=== PATIENT | female | born 1930 | race Caucasian/White ===

== ENCOUNTER 2017-05-09 23:17 | Emergency (ER) | payer MEDICARE, OTHER ==
[~2017-05-09] VITALS: Ht 154.9 cm; Wt 59.1 kg
[~2017-05-09 23:17] MED LIST: ACET-784 PO; ASPI81 PO; AUD NEB; BISA10S PR; BISA5TAB12 PO; CLOP75TA32 PO; DSS100 PO; HEPA500018 SQ; INSLAN SQ; INSNOV SQ; IPRNEB IH; LORA0.5T2 PO; MEMA1CAP4 PO; MIRT15 PO; MOM30 PO; MULT-68 PO; MULT1CAP42 PO; ONDA4 PO; PANT40TA25 PO; PARO10TA71 PO; RISP.5 PO; VALS160T2 PO; ZOLP5 PO
[2017-05-09 23:32] LABS: GLUCOSE,POINT OF CARE 143 MG/DL (70-110)
[2017-05-10 00:33] LABS: BASOPHILS % (AUTO) 0.3 % (0.0-2.0); EOSINOPHILS % (AUTO) 3.3 % (1.0-6.0); HEMATOCRIT 47.2 % (36-46); HEMOGLOBIN 16.1 g/dL (12.0-16.0); LYMPHOCYTES # (AUTO) 1.3 K/uL (1.0-4.8); LYMPHOCYTES % (AUTO) 24.8 % (22.0-44.0); MEAN CORPUSCULAR HEMOGLOBIN 30.8 pg (26.0-34.0); MEAN CORPUSCULAR HGB CONC 34.2 G/dL (31.0-37.0); MEAN CORPUSCULAR VOLUME 90 fL (80-100); MONOCYTES # (AUTO) 0.5 K/uL (0.1-1.0); MONOCYTES % (AUTO) 9.8 % (2.0-9.0); NEUTROPHILS # (AUTO) 3.3 K/uL (1.8-7.7); NEUTROPHILS % (AUTO) 61.8 % (40.0-70.0); PLATELET COUNT (AUTO) 145 K/uL (150-450); RED BLOOD CELL COUNT(AUTO) 5.23 MIL/uL (4.00-5.20); RED CELL DISTRIBUTION WIDTH 13.9 % (11.5-14.5)
[2017-05-10 00:46] LABS: ANION GAP 9 mmol/L (8-16); CALCIUM, TOTAL 10.1 mg/dL (8.8-10.5); CARBON DIOXIDE 28 mmol/L (22-29); CHLORIDE 102 mmol/L (98-107); CREATININE 1.11 mg/dL (0.60-1.30); GLOMERULAR FILTR. RATE CALC 46 mL/min (>60); GLUCOSE,RANDOM 226 mg/dL (70-110); POTASSIUM 4.1 mmol/L (3.5-5.1); SODIUM SERUM 139 mmol/L (136-145); UREA NITROGEN, BLOOD 27 mg/dL (7-18)
[2017-05-10 01:09] LABS: ALANINE AMINOTRANSFERASE 23 U/L (12-78); ALBUMIN 3.6 g/dL (3.4-5.0); ALKALINE PHOSPHATASE 84 U/L (46-116); ASPARTATE AMINOTRANSFERASE 32 U/L (15-37); BILIRUBIN,TOTAL 0.7 mg/dL (0.1-1.0); CREATINE KINASE MB 4.3 ng/mL (0-5); CREATINE KINASE, TOTAL 511 U/L (26-192); TOTAL PROTEIN, SERUM 7.5 g/dL (6.4-8.2)
[2017-05-10 02:29] VITALS: BP 127/78
== END 2017-05-10 02:32 | disposition home or self-care (01) ==
LOC: EMS 23:19
DX: S70.02XA Contusion of left hip, initial encounter (principal); L25.9 Unspecified contact dermatitis, unspecified cause; E11.9 Type 2 diabetes mellitus without complications; I10 Essential (primary) hypertension; E03.9 Hypothyroidism, unspecified; F03.90 Unspecified dementia, unspecified severity, without behavioral disturbance, psychotic disturbance, mood disturbance, and anxiety; Z85.3 Personal history of malignant neoplasm of breast; Z79.82 Long term (current) use of aspirin; Z79.4 Long term (current) use of insulin; Z79.899 Other long term (current) drug therapy; Z98.890 Other specified postprocedural states; W18.39XA Other fall on same level, initial encounter; Y93.89 Activity, other specified; Y92.89 Other specified places as the place of occurrence of the external cause; Y99.8 Other external cause status
CPT/HCPCS: 73521; 82962; 93005; 99285

== ENCOUNTER 2018-10-17 21:08 | Inpatient (IN) | payer MEDICARE, OTHER ==
[~2018-10-17] VITALS: Ht 149.9 cm; Wt 40.3 kg
[~2018-10-17 21:08] MED LIST changes: +BISA-151 PO; -BISA10S PR; +BISA10SU11 PR; -BISA5TAB12 PO
[2018-10-17] MEDS ORDERED: GLIP5 PO (21:42)
[2018-10-17] MEDS ORDERED: AMOX1TAB15 PO (21:42)
[2018-10-17] MEDS ORDERED: SODIUM CHLORIDE 0.9% 500 ML IV ONE (22:00)
[2018-10-17 22:39] LABS: BASOPHILS % (AUTO) 0.2 % (0.0-2.0); EOSINOPHILS % (AUTO) 2.4 % (1.0-6.0); HEMATOCRIT 44.3 % (36-46); HEMOGLOBIN 14.1 g/dL (12.0-16.0); LYMPHOCYTES # (AUTO) 1.5 K/uL (1.0-4.8); LYMPHOCYTES % (AUTO) 26.9 % (22.0-44.0); MEAN CORPUSCULAR HEMOGLOBIN 28.9 pg (26.0-34.0); MEAN CORPUSCULAR HGB CONC 31.9 G/dL (31.0-37.0); MEAN CORPUSCULAR VOLUME 91 fL (80-100); MONOCYTES # (AUTO) 0.4 K/uL (0.1-1.0); MONOCYTES % (AUTO) 7.3 % (2.0-9.0); NEUTROPHILS # (AUTO) 3.4 K/uL (1.8-7.7); NEUTROPHILS % (AUTO) 63.2 % (40.0-70.0); PLATELET COUNT (AUTO) 165 K/uL (150-450); RED CELL DISTRIBUTION WIDTH 14.9 % (11.5-14.5)
[2018-10-17 22:40] LABS: CALCIUM, TOTAL 10.5 mg/dL (8.8-10.5); CREATININE 0.93 mg/dL (0.60-1.30)
[2018-10-17 22:47] LABS: ALBUMIN 3.2 g/dL (3.4-5.0); BILIRUBIN,TOTAL 0.7 mg/dL (0.1-1.0); TOTAL PROTEIN, SERUM 7.2 g/dL (6.4-8.2)
[2018-10-17 22:49] LABS: LACTIC ACID 1.5 mmol/L (0.4-2.0)
[2018-10-17 23:01] LABS: INFLUENZA TYPE A NEGATIVE FOR TYPE A (NEGATIVE); INFLUENZA TYPE B NEGATIVE FOR TYPE B (NEGATIVE)
[2018-10-17] MEDS ORDERED: 0.9% SODIUM CHLORIDE 10 ML SYRINGE IVP PRN ×2 (23:30→23:45)
[2018-10-17] MEDS ORDERED: ONDANSETRON HCL 4 MG/2 ML VIAL IVP PRN ×2 (23:30→23:45)
[2018-10-17] MEDS ORDERED: ASPIRIN 81 MG CHEWABLE TABLET PO ONE (23:30)
[2018-10-17] MEDS ORDERED: CefTRIAXone 1 GM/DEXTROSE 50 ML IV ONE (23:30)
[2018-10-17] MEDS ORDERED: ACETAMINOPHEN 325 MG TABLET PO PRN ×2 (23:30→23:45)
[2018-10-17] MEDS ORDERED: MAGNESIUM SULFATE 2 GM/WATER 50 ML IV PRN (23:45)
[2018-10-17] MEDS ORDERED: ZOLPIDEM TARTRATE 5 MG TABLET PO PRN (23:45)
[2018-10-17] MEDS ORDERED: ALBUTEROL SULFATE 2.5 MG/0.5 ML NEB SOLUTION NEB PRN (23:45)
[2018-10-17] MEDS ORDERED: LORazepam 0.5 MG TABLET PO PRN (23:45)
[2018-10-17] MEDS ORDERED: MAGNESIUM OXIDE 400 MG TABLET PO PRN (23:45)
[2018-10-17] MEDS ORDERED: MAGNESIUM SULFATE 4 GM/WATER 100 ML IV PRN (23:45)
[2018-10-17] MEDS ORDERED: DEXTROSE 50%-WATER 25 GM/50 ML SYRINGE IVP PRN (23:45)
[2018-10-17] MEDS ORDERED: POTASSIUM CHLORIDE 20 MEQ ER TABLET PO PRN (23:45)
[2018-10-17] MEDS ORDERED: IPRATROPIUM BROMIDE 0.5 MG/2.5 ML NEB SOLUTION NEB PRN (23:45)
[2018-10-17] MEDS ORDERED: POTASSIUM CHL 10 MEQ/WATER 50 ML IV PRN (23:45)
[2018-10-18] MEDS: HEPARIN SODIUM,PORCINE 5,000 UNITS/ML VIAL SQ SCH ×4 (00:32→23:30)
[2018-10-18] MEDS: AZITHROMYCIN 500 MG/NS 250 ML IV SCH ×2 (00:32→23:31)
[2018-10-18 01:42] VITALS: BP 121/50
[2018-10-18] MEDS: IPRATROPIUM BROMIDE 0.5 MG/2.5 ML NEB SOLUTION NEB SCH ×4 (02:00→20:00)
[2018-10-18] MEDS: ALBUTEROL SULFATE 2.5 MG/0.5 ML NEB SOLUTION NEB SCH ×4 (02:00→20:00)
[2018-10-18 04:31] VITALS: BP 116/52
[2018-10-18] MEDS: INSULIN LISPRO 100 UNITS/ML SQ PRN ×2 (06:24→21:26)
[2018-10-18 06:48] LABS: BASOPHILS % (AUTO) 0.2 % (0.0-2.0); EOSINOPHILS % (AUTO) 1.8 % (1.0-6.0); HEMATOCRIT 49.3 % (36-46); HEMOGLOBIN 16.1 g/dL (12.0-16.0); LYMPHOCYTES # (AUTO) 1.7 K/uL (1.0-4.8); MEAN CORPUSCULAR HEMOGLOBIN 29.6 pg (26.0-34.0); MEAN CORPUSCULAR HGB CONC 32.7 G/dL (31.0-37.0); MEAN CORPUSCULAR VOLUME 91 fL (80-100); MONOCYTES # (AUTO) 0.6 K/uL (0.1-1.0); MONOCYTES % (AUTO) 8.3 % (2.0-9.0); NEUTROPHILS # (AUTO) 4.3 K/uL (1.8-7.7); NEUTROPHILS % (AUTO) 64.7 % (40.0-70.0); PLATELET COUNT (AUTO) 148 K/uL (150-450); RED BLOOD CELL COUNT(AUTO) 5.44 MIL/uL (4.00-5.20); RED CELL DISTRIBUTION WIDTH 14.7 % (11.5-14.5)
[2018-10-18 06:52] LABS: ANION GAP 7 mmol/L (8-16); CALCIUM, TOTAL 10.5 mg/dL (8.8-10.5); CARBON DIOXIDE 27 mmol/L (22-29); CHLORIDE 104 mmol/L (98-107); GLUCOSE,RANDOM 189 mg/dL (70-110); POTASSIUM 4.1 mmol/L (3.5-5.1); SODIUM SERUM 138 mmol/L (136-145); UREA NITROGEN, BLOOD 15 mg/dL (7-18)
[2018-10-18 06:59] LABS: GLOMERULAR FILTR. RATE CALC > 60 mL/min (>60)
[2018-10-18 08:02] VITALS: BP 112/52
[2018-10-18] MEDS: PANTOPRAZOLE SODIUM 40 MG DR TABLET PO SCH (08:07)
[2018-10-18] MEDS ORDERED: MEMANTINE PO SCH (09:00)
[2018-10-18] MEDS ORDERED: PANTOPRAZOLE SODIUM 40 MG DR TABLET PO SCH (09:00)
[2018-10-18] MEDS ORDERED: DONEPEZIL PO SCH (09:00)
[2018-10-18 09:50] LABS: APPEARANCE,URINE CLEAR (CLEAR); BILIRUBIN,URINE NEGATIVE (NEGATIVE); GLUCOSE, URINE (UA) 100 mg/dL (NEGATIVE); KETONES,URINE NEGATIVE (NEGATIVE); LEUKOCYTE ESTERASE ,URINE SMALL (NEGATIVE); NITRATE,URINE NEGATIVE (NEGATIVE); OCCULT BLOOD,URINE NEGATIVE (NEGATIVE); PROTEIN,URINE TRACE (NEGATIVE); UROBILINOGEN,URINE 0.2 mg/dL (<=1.0)
[2018-10-18 10:20] LABS: BACTERIA,URINE None Seen /HPF (None Seen); RBC,URINE None Seen /HPF (0-2); SQUAMOUS EPITHELIAL CELL,UR Few /LPF (None Seen)
[2018-10-18 11:35] VITALS: BP 145/87
[2018-10-18 11:40] LABS: GLUCOMETER DEV NAME(LOC) 5N.2; GLUCOSE,POINT OF CARE 117 MG/DL (70-110)
[2018-10-18 11:40] LABS: GLUCOMETER DEV NAME(LOC) 5N.2; GLUCOSE,POINT OF CARE 175 MG/DL (70-110)
[2018-10-18 20:07] VITALS: BP 150/79
[2018-10-18] MEDS ORDERED: SODIUM CHLORIDE 0.9% 250 ML IV ONE (20:42)
[2018-10-18] MEDS: CefTRIAXone 1 GM/DEXTROSE 50 ML IV SCH (21:02)
[2018-10-18] MEDS: MIRTAZAPINE 15 MG TABLET PO SCH (21:02)
[2018-10-18 23:20] LABS: GLUCOMETER DEV NAME(LOC) 5N.1; GLUCOSE,POINT OF CARE 144 MG/DL (70-110)
[2018-10-18 23:20] LABS: GLUCOMETER DEV NAME(LOC) 5S.1; GLUCOSE,POINT OF CARE 266 MG/DL (70-110)
[2018-10-19 00:12] VITALS: BP 152/95
[2018-10-19] MEDS: IPRATROPIUM BROMIDE 0.5 MG/2.5 ML NEB SOLUTION NEB SCH ×4 (02:00→20:00)
[2018-10-19] MEDS: ALBUTEROL SULFATE 2.5 MG/0.5 ML NEB SOLUTION NEB SCH ×4 (02:00→20:00)
[2018-10-19] MEDS: HEPARIN SODIUM,PORCINE 5,000 UNITS/ML VIAL SQ SCH ×4 (08:00→23:08)
[2018-10-19] MEDS: PANTOPRAZOLE SODIUM 40 MG DR TABLET PO SCH (10:28)
[2018-10-19] MEDS: LISINOPRIL 20 MG TABLET PO SCH (18:21)
[2018-10-19] MEDS: INSULIN LISPRO 100 UNITS/ML SQ PRN (18:22)
[2018-10-19 20:12] VITALS: BP 110/57
[2018-10-19] MEDS: MIRTAZAPINE 15 MG TABLET PO SCH (21:00)
[2018-10-19] MEDS: CefTRIAXone 1 GM/DEXTROSE 50 ML IV SCH (21:56)
[2018-10-19] MEDS: AZITHROMYCIN 500 MG/NS 250 ML IV SCH (23:07)
[2018-10-20] MEDS: IPRATROPIUM BROMIDE 0.5 MG/2.5 ML NEB SOLUTION NEB SCH ×3 (02:00→20:00)
[2018-10-20] MEDS: ALBUTEROL SULFATE 2.5 MG/0.5 ML NEB SOLUTION NEB SCH ×3 (02:00→20:00)
[2018-10-20 05:38] VITALS: BP 150/63
[2018-10-20] MEDS: HEPARIN SODIUM,PORCINE 5,000 UNITS/ML VIAL SQ SCH ×2 (08:00→16:00)
[2018-10-20 08:21] LABS: GLUCOMETER DEV NAME(LOC) 5N.1; GLUCOSE,POINT OF CARE 179 MG/DL (70-110)
[2018-10-20 08:21] LABS: GLUCOMETER DEV NAME(LOC) 5N.1; GLUCOSE,POINT OF CARE 160 MG/DL (70-110)
[2018-10-20 09:15] VITALS: BP 171/71
[2018-10-20] MEDS: LISINOPRIL 20 MG TABLET PO SCH (09:19)
[2018-10-20] MEDS: PANTOPRAZOLE SODIUM 40 MG DR TABLET PO SCH (09:19)
[2018-10-20 16:05] VITALS: BP 128/90
[2018-10-20] MEDS: MIRTAZAPINE 15 MG TABLET PO SCH (20:55)
[2018-10-20] MEDS: CefTRIAXone 1 GM/DEXTROSE 50 ML IV SCH (22:00)
[2018-10-21] MEDS: AZITHROMYCIN 500 MG/NS 250 ML IV SCH
[2018-10-21 00:45] LABS: GLUCOMETER DEV NAME(LOC) 5N.1; GLUCOSE,POINT OF CARE 235 MG/DL (70-110)
[2018-10-21] MEDS: ALBUTEROL SULFATE 2.5 MG/0.5 ML NEB SOLUTION NEB SCH ×3 (02:00→20:00)
[2018-10-21] MEDS: IPRATROPIUM BROMIDE 0.5 MG/2.5 ML NEB SOLUTION NEB SCH ×3 (02:00→20:00)
[2018-10-21 05:56] LABS: GLUCOMETER DEV NAME(LOC) 5N.2; GLUCOSE,POINT OF CARE 156 MG/DL (70-110)
[2018-10-21 05:56] LABS: GLUCOMETER DEV NAME(LOC) 5N.2; GLUCOSE,POINT OF CARE 194 MG/DL (70-110)
[2018-10-21] MEDS: HEPARIN SODIUM,PORCINE 5,000 UNITS/ML VIAL SQ SCH ×3 (08:00→16:00)
[2018-10-21] MEDS: LISINOPRIL 20 MG TABLET PO SCH (09:00)
[2018-10-21] MEDS: PANTOPRAZOLE SODIUM 40 MG DR TABLET PO SCH (09:00)
[2018-10-21 15:11] VITALS: BP 150/79
[2018-10-21 19:15] VITALS: BP 159/84
[2018-10-21 20:30] LABS: GLUCOMETER DEV NAME(LOC) 5S.2A; GLUCOSE,POINT OF CARE 127 MG/DL (70-110)
[2018-10-21] MEDS: MIRTAZAPINE 15 MG TABLET PO SCH (21:00)
[2018-10-21] MEDS: CefTRIAXone 1 GM/DEXTROSE 50 ML IV SCH (22:00)
[2018-10-21 23:20] VITALS: BP 153/71
[2018-10-22] MEDS: AZITHROMYCIN 500 MG/NS 250 ML IV SCH
[2018-10-22] MEDS: IPRATROPIUM BROMIDE 0.5 MG/2.5 ML NEB SOLUTION NEB SCH ×4 (02:00→20:00)
[2018-10-22] MEDS: ALBUTEROL SULFATE 2.5 MG/0.5 ML NEB SOLUTION NEB SCH ×4 (02:00→20:00)
[2018-10-22 04:25] VITALS: BP 176/77
[2018-10-22] MEDS: HEPARIN SODIUM,PORCINE 5,000 UNITS/ML VIAL SQ SCH ×3 (08:00→16:00)
[2018-10-22 08:12] VITALS: BP 149/67
[2018-10-22] MEDS: LISINOPRIL 20 MG TABLET PO SCH (08:43)
[2018-10-22] MEDS: PANTOPRAZOLE SODIUM 40 MG DR TABLET PO SCH (08:43)
[2018-10-22] MEDS: INSULIN LISPRO 100 UNITS/ML SQ PRN ×2 (12:49→21:00)
[2018-10-22 15:58] VITALS: BP 148/71
[2018-10-22 17:06] LABS: GLUCOMETER DEV NAME(LOC) 5N.1; GLUCOSE,POINT OF CARE 262 MG/DL (70-110)
[2018-10-22 19:54] VITALS: BP 152/95
[2018-10-22] MEDS: DOCUSATE SODIUM 100 MG CAPSULE PO SCH (20:46)
[2018-10-22] MEDS: MIRTAZAPINE 15 MG TABLET PO SCH (21:00)
[2018-10-22] MEDS: CefTRIAXone 1 GM/DEXTROSE 50 ML IV SCH (21:39)
[2018-10-22 23:38] VITALS: BP 153/91
[2018-10-23] MEDS: AZITHROMYCIN 500 MG/NS 250 ML IV SCH (00:24)
[2018-10-23] MEDS: IPRATROPIUM BROMIDE 0.5 MG/2.5 ML NEB SOLUTION NEB SCH ×3 (02:00→14:30)
[2018-10-23] MEDS: ALBUTEROL SULFATE 2.5 MG/0.5 ML NEB SOLUTION NEB SCH ×3 (02:00→14:30)
[2018-10-23 04:15] VITALS: BP 160/77
[2018-10-23] MEDS: INSULIN LISPRO 100 UNITS/ML SQ PRN (06:34)
[2018-10-23] MEDS: HEPARIN SODIUM,PORCINE 5,000 UNITS/ML VIAL SQ SCH ×4 (08:00→16:00)
[2018-10-23 08:31] LABS: GLUCOMETER DEV NAME(LOC) 5N.1; GLUCOSE,POINT OF CARE 244 MG/DL (70-110)
[2018-10-23] MEDS: PANTOPRAZOLE SODIUM 40 MG DR TABLET PO SCH ×2 (09:00→09:39)
[2018-10-23] MEDS: MULTIVITAMINS WITH MINERALS, THERAPEUTIC TABLET PO SCH ×2 (09:00→09:39)
[2018-10-23] MEDS: LISINOPRIL 20 MG TABLET PO SCH ×2 (09:00→09:39)
[2018-10-23] MEDS: DOCUSATE SODIUM 100 MG CAPSULE PO SCH ×2 (09:00→09:39)
[2018-10-23 11:25] VITALS: BP 148/78
[2018-10-25 07:40] LABS: GLUCOMETER DEV NAME(LOC) 5S.2A; GLUCOSE,POINT OF CARE 170 MG/DL (70-110)
== END 2018-10-23 19:15 | disposition hospice, home (50) | DRG 194 ==
LOC: EMS 21:09 → 5S 23:48
PROVIDERS: ADMIT Internal Medicine; ATTEND Internal Medicine
DX: J18.9 Pneumonia, unspecified organism (principal); E44.0 Moderate protein-calorie malnutrition; Z68.1 Body mass index [BMI] 19.9 or less, adult; E86.0 Dehydration; F03.90 Unspecified dementia, unspecified severity, without behavioral disturbance, psychotic disturbance, mood disturbance, and anxiety; I10 Essential (primary) hypertension; E11.65 Type 2 diabetes mellitus with hyperglycemia; I25.10 Atherosclerotic heart disease of native coronary artery without angina pectoris; E78.5 Hyperlipidemia, unspecified; R62.7 Adult failure to thrive; E03.9 Hypothyroidism, unspecified; Z66 Do not resuscitate; Z85.3 Personal history of malignant neoplasm of breast; Z90.11 Acquired absence of right breast and nipple; Z95.1 Presence of aortocoronary bypass graft
CPT/HCPCS: 83605; 83735; 84100; 87040; 87086; 87804; 93005; 93306; 94640; 96365; 97162; 97166; 97535; G0378; J0456; J0696; J1644; J7040; J7050

== ENCOUNTER 2018-12-25 12:09 | Emergency (ER) | payer MEDICARE, OTHER ==
[~2018-12-25] VITALS: Ht 152.4 cm; Wt 42.3 kg
[~2018-12-25 12:09] MED LIST changes: -ACET-784 PO; -ASPI81 PO; -AUD NEB; -BISA-151 PO; -BISA10SU11 PR; -CLOP75TA32 PO; -DSS100 PO; -HEPA500018 SQ; -INSLAN SQ; -INSNOV SQ; -IPRNEB IH; +LORA-999 PO; -LORA0.5T2 PO; -MOM30 PO; -MULT-68 PO; -MULT1CAP42 PO; -ONDA4 PO; -PARO10TA71 PO; -RISP.5 PO; -VALS160T2 PO; -ZOLP5 PO
[2018-12-25] MEDS ORDERED: ASPI81 PO (13:09)
[2018-12-25] MEDS ORDERED: GLIP5 PO (13:09)
[2018-12-25] MEDS ORDERED: RISP.5 PO (13:09)
[2018-12-25] MEDS ORDERED: DOCU-275 PO (13:09)
[2018-12-25] MEDS ORDERED: SODIUM CHLORIDE 0.9% 1,000 ML IV ONE (13:30)
[2018-12-25 13:51] LABS: BASOPHILS % (AUTO) 0.3 % (0.0-2.0); EOSINOPHILS % (AUTO) 0.7 % (1.0-6.0); HEMATOCRIT 45.9 % (36-46); HEMOGLOBIN 15.3 g/dL (12.0-16.0); LYMPHOCYTES # (AUTO) 1.7 K/uL (1.0-4.8); LYMPHOCYTES % (AUTO) 16.4 % (22.0-44.0); MEAN CORPUSCULAR HEMOGLOBIN 30.3 pg (26.0-34.0); MEAN CORPUSCULAR HGB CONC 33.4 G/dL (31.0-37.0); MEAN CORPUSCULAR VOLUME 91 fL (80-100); MONOCYTES # (AUTO) 0.9 K/uL (0.1-1.0); MONOCYTES % (AUTO) 9.2 % (2.0-9.0); NEUTROPHILS # (AUTO) 7.4 K/uL (1.8-7.7); NEUTROPHILS % (AUTO) 73.4 % (40.0-70.0); PLATELET COUNT (AUTO) 212 K/uL (150-450); RED BLOOD CELL COUNT(AUTO) 5.06 MIL/uL (4.00-5.20); RED CELL DISTRIBUTION WIDTH 15.3 % (11.5-14.5)
[2018-12-25 14:37] LABS: CREATININE 1.08 mg/dL (0.60-1.30); POTASSIUM 4.7 mmol/L (3.5-5.1)
[2018-12-25 14:44] LABS: ALBUMIN 2.7 g/dL (3.4-5.0); BILIRUBIN,TOTAL 0.4 mg/dL (0.1-1.0); TOTAL PROTEIN, SERUM 7.1 g/dL (6.4-8.2)
[2018-12-25] MEDS ORDERED: LORazepam 2 MG/ML VIAL IVP ONE (15:45)
[2018-12-25 15:56] LABS: PROTHROMBIN TIME 10.3 SEC (9.4-11.6)
[2018-12-25 16:20] LABS: APPEARANCE,URINE CLEAR (CLEAR); BILIRUBIN,URINE NEGATIVE (NEGATIVE); GLUCOSE, URINE (UA) >=1000 mg/dL (NEGATIVE); KETONES,URINE NEGATIVE (NEGATIVE); LEUKOCYTE ESTERASE ,URINE NEGATIVE (NEGATIVE); NITRATE,URINE NEGATIVE (NEGATIVE); OCCULT BLOOD,URINE NEGATIVE (NEGATIVE); PH,URINE 6.5 (5.0-8.0); PROTEIN,URINE NEGATIVE (NEGATIVE); UROBILINOGEN,URINE 0.2 mg/dL (<=1.0)
[2018-12-25 16:42] LABS: BACTERIA,URINE None Seen /HPF (None Seen); RBC,URINE 0-2 /HPF (0-2); SQUAMOUS EPITHELIAL CELL,UR Rare /LPF (None Seen); WBC,URINE 0-2 /HPF (0-5)
[2018-12-25 17:26] VITALS: BP 145/82
== END 2018-12-25 18:27 | disposition home or self-care (01) ==
LOC: EMS 12:11
DX: S05.11XA Contusion of eyeball and orbital tissues, right eye, initial encounter (principal); S05.12XA Contusion of eyeball and orbital tissues, left eye, initial encounter; F03.90 Unspecified dementia, unspecified severity, without behavioral disturbance, psychotic disturbance, mood disturbance, and anxiety; I10 Essential (primary) hypertension; E11.9 Type 2 diabetes mellitus without complications; E03.9 Hypothyroidism, unspecified; Z79.899 Other long term (current) drug therapy; W06.XXXA Fall from bed, initial encounter; Y93.89 Activity, other specified; Y92.89 Other specified places as the place of occurrence of the external cause; Y99.8 Other external cause status
CPT/HCPCS: 36415; 70450; 70486; 71045; 72125; 80053; 81001; 82550; 82962; 84484; 85025; 85610; 85730; 93005; 96374; 99285; J2060; J7030; 51702